=== PATIENT | male | born 1955 | race Caucasian/White ===

== ENCOUNTER 2024-03-11 14:24 | Emergency (ER) | payer MEDICARE, OTHER, SELFPAY ==
[2024-03-11 14:31] VITALS: BP 131/76; PULSE 83; RESP 16; TEMP 36.4; O2SAT 99
--- NOTE | 2024-03-11 14:36 | ED.WOUNDLAC ---
HPI - Wound/Laceration General Chief Complaint: Wound/Laceration Stated Complaint: Left hand middle several fingers cut Time Seen by Provider: 03/11/24 14:36 Source: patient, family, RN notes reviewed and old records reviewed Mode of arrival: ambulatory Limitations: no limitations History of Present Illness HPI narrative: 68 year old male accompanied by presents to express care with complaints of grinding on a car using a drill press and the metal moved causing cuts to his friedman aspect of fingers and 2 small superficial on friedman aspect of his distal hand just prior to arrival. Patient has small amount of active bleeding to cut of left friedman middle finger and of friedman aspect of ring finger. He reports no tingling or numbness to his left hand hand or finger, patient has full mobility of all fingers, strong left radial pulse is present with hand warm and pink. Patient reports that he is not up to date on his tetanus Onset (ago): hour(s) (prior to arrival) Location: other (left hand) Patient tetanus UTD: No Treatments prior to arrival: other (rinsed hand with copious amounts of water and wrapped in hand towel) Related Data Home Medications Medication Instructions Recorded Confirmed levothyroxine 25 mcg tablet mcg 03/11/24 (Synthroid) Allergies Allergy/AdvReac Type Severity Reaction Status Date / Time No Known Allergies Allergy Verified 03/11/24 14:47 Review of Systems Review of Systems: CONSTITUTIONAL: Denies fever, chills, or sweats. CARDIOVASCULAR: Denies chest pain, palpitations, or edema. RESPIRATORY: Denies cough or dyspnea. SKIN: Reports laceration to the friedman aspect of left middle and ring finger and small superficial cut to friedman index finger and 2 superficial cuts to friedman aspect proximal hand MUSCULOSKELETAL: Denies musculoskeletal pain NEUROLOGIC: Denies numbness, or weakness. All systems reviewed & are unremarkable except as noted in HPI and below PMFSH Past Medical History Medical History (Updated 03/12/24 @ 08:00 by Beverley Tavera NP) Hypothyroid Prediabetes Surgical History Surgical History (Updated 03/12/24 @ 07:33 by Beverley Tavera NP) Hx of cholecystectomy Social History Social History (Updated 03/12/24 @ 07:34 by Beverley Tavera NP) Smoking packs per day: 0.5 Smoking cigarettes per day: 10.0 Years smoked: 30 Smoking pack-years: 15.00 Smoking status: Former smoker Tobacco type: cigarettes Alcohol intake: current Alcohol use details: social Substance use type: does not use Living arrangements: with family Occupation/Education: retired Gender identity (if verbalized by the patient): Male Comments At time of signature, agree with nursing past medical, surgical, social and family history. There is no relevant family history pertinent to the presenting complaint Exam Narrative: GENERAL: Well-appearing, well-nourished, and in no acute distress. HEAD: Normocephalic, atraumatic. NECK: Supple.no lymphadenopathy CHEST: Clear to auscultation. No respiratory distress.SAO2 99% on room air HEART: Regular rate and rhythm. No murmur heard. Normal peripheral pulses. EXTREMITIES: Normal range of motion. No edema. SKIN: Warm, dry, no rash. laceration to friedman proximal ring finger 1.1m X 0.2 cm, friedman proximal aspect middle finger 1.7cm X 0.2cm, superficial laceration X2 to proximal hand and one distal index finger. see procedure note NEURO: No focal deficits. Alert and oriented x3. Course Course Level of Care: Express Care Visit Vital Signs Vital signs: Vital Signs Temperature 36.4 C L 03/11/24 14:31 Pulse Rate 83 03/11/24 14:31 Respiratory Rate 16 03/11/24 14:31 Blood Pressure 131/76 03/11/24 14:31 Pulse Oximetry 99 03/11/24 14:31 Temperature 36.4 C L 03/11/24 14:31 Pulse Rate 83 03/11/24 14:31 Respiratory Rate 16 03/11/24 14:31 Blood Pressure 131/76 03/11/24 14:31 Pulse Oximetry 99 03/11/24
[2024-03-11] MEDS: TETANUS,DIPHTHERIA,AC PERTUSSIS ADULT (0.5 ML) BOOSTRIX IM (14:48)
--- NOTE | 2024-03-11 19:45 | PC.NURSE ---
1530 During stay INTERNAL MEDICINE VETERINARY TECHNICIAN explained to pt the need to suture some wounds. Observed pt hollering and thrashing about during lidocaine injection, refusing complete administration. INTERNAL MEDICINE VETERINARY TECHNICIAN explained importance of administration and wound closure with sutures, pt refused and requested steri-strips.
== END 2024-03-11 15:30 | disposition home or self-care (01) ==
PROVIDERS: Emergency Provider Registered Nurse
DX: S61.211A Laceration without foreign body of left index finger without damage to nail, initial encounter (principal); S61.213A Laceration without foreign body of left middle finger without damage to nail, initial encounter; S61.215A Laceration without foreign body of left ring finger without damage to nail, initial encounter; S61.412A Laceration without foreign body of left hand, initial encounter; W31.89XA Contact with other specified machinery, initial encounter; Z23 Encounter for immunization; Z87.891 Personal history of nicotine dependence; E03.9 Hypothyroidism, unspecified; R73.03 Prediabetes
CPT/HCPCS: 90471; 90715; 99213; G0463